=== PATIENT | male | born 1985 | race Caucasian/White ===

== ENCOUNTER 2017-06-04 09:28 | Emergency (ER) | payer SELFPAY ==
[~2017-06-04] VITALS: Ht 175.3 cm; Wt 61.2 kg
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
--- NOTE | 2017-06-04 12:17 | NUR ---
Patient discharged to home in stable condition. Written and verbal after care instructions given. Patient verbalizes understanding of instruction.
[2017-06-04 12:22] VITALS: BP 139/87
== END 2017-06-04 12:23 | disposition home or self-care (01) ==
LOC: ER 09:30
DX: S19.9XXA Unspecified injury of neck, initial encounter (principal); Y04.0XXA Assault by unarmed brawl or fight, initial encounter; Y93.89 Activity, other specified; Y92.89 Other specified places as the place of occurrence of the external cause; Y99.8 Other external cause status
CPT/HCPCS: 70360; 70490; 99284; A4606; Z7610